=== PATIENT | female | born 1975 | race Caucasian/White ===

== ENCOUNTER → 2017-03-27 | Outpatient (CLI) | payer BC ==
--- NOTE | 2017-03-28 13:31 | MM ---
Reason for exam: screening (asymptomatic). Last mammogram was performed 1 year and 1 month ago. Physical Findings: A clinical breast exam by your physician is recommended on an annual basis and results should be correlated with mammographic findings. MG Screening Mammo w CAD Bilateral CC and MLO view(s) were taken. Prior study comparison: February 17, 2016, right breast MG work up mamm w CAD RT. February 09, 2016, bilateral MG screening mammo w CAD. The breast tissue is heterogeneously dense. This may lower the sensitivity of mammography. No significant changes when compared with prior studies. ASSESSMENT: Negative, BI-RAD 1 RECOMMENDATION: Routine screening mammogram of both breasts in 1 year.
== END | disposition home or self-care (01) ==
LOC: RADMAMWWP 07:03
PROVIDERS: ATTEND Obstetrics & Gynecology
DX: Z12.31 Encounter for screening mammogram for malignant neoplasm of breast (principal)
CPT/HCPCS: 77067

== ENCOUNTER → 2018-04-01 | Outpatient (CLI) | payer BC ==
--- NOTE | 2018-04-02 12:03 | MM ---
Reason for exam: screening (asymptomatic). Last mammogram was performed 1 year ago. Physical Findings: A clinical breast exam by your physician is recommended on an annual basis and results should be correlated with mammographic findings. MG Screening Mammo w CAD Bilateral CC and MLO view(s) were taken. Prior study comparison: March 27, 2017, bilateral MG screening mammo w CAD. February 17, 2016, right breast MG work up mamm w CAD RT. The breast tissue is heterogeneously dense. This may lower the sensitivity of mammography. No significant changes when compared with prior studies. ASSESSMENT: Benign, BI-RAD 2 RECOMMENDATION: Routine screening mammogram of both breasts in 1 year.
== END | disposition home or self-care (01) ==
LOC: RADMAMWWP 06:48
PROVIDERS: ATTEND Obstetrics & Gynecology
DX: Z12.31 Encounter for screening mammogram for malignant neoplasm of breast (principal)
CPT/HCPCS: 77067

== ENCOUNTER → 2019-04-21 | Outpatient (CLI) | payer MEDICAID ==
--- NOTE | 2019-04-21 11:31 | MM ---
Reason for exam: screening (asymptomatic). Last mammogram was performed 1 year and 1 month ago. History: Patient is postmenopausal. Physical Findings: A clinical breast exam by your physician is recommended on an annual basis and results should be correlated with mammographic findings. MG Screening Mammo w CAD Bilateral CC and MLO view(s) were taken. Prior study comparison: April 01, 2018, bilateral MG screening mammo w CAD. March 27, 2017, bilateral MG screening mammo w CAD. The breast tissue is heterogeneously dense. This may lower the sensitivity of mammography. Increasing density compatible with interval weight loss. No significant changes when compared with prior studies. ASSESSMENT: Negative, BI-RAD 1 RECOMMENDATION: Routine screening mammogram of both breasts in 1 year.
== END | disposition home or self-care (01) ==
LOC: RADMAMWWP 07:14
PROVIDERS: ATTEND Obstetrics & Gynecology
DX: Z12.31 Encounter for screening mammogram for malignant neoplasm of breast (principal)
CPT/HCPCS: 77067

== ENCOUNTER → 2021-01-09 | Outpatient (CLI) | payer MEDICAID ==
--- NOTE | 2021-01-11 09:53 | MM ---
Reason for exam: screening (asymptomatic). Last mammogram was performed 1 year and 9 months ago. History: Patient is postmenopausal. Took hormonal contraceptives for 10 years. Physical Findings: A clinical breast exam by your physician is recommended on an annual basis and results should be correlated with mammographic findings. MG Screening Mammo w CAD Bilateral CC and MLO view(s) were taken. Prior study comparison: April 21, 2019, bilateral MG screening mammo w CAD. April 01, 2018, bilateral MG screening mammo w CAD. The breast tissue is heterogeneously dense. This may lower the sensitivity of mammography. No significant changes when compared with prior studies. ASSESSMENT: Benign, BI-RAD 2 RECOMMENDATION: Routine screening mammogram of both breasts in 1 year.
== END | disposition home or self-care (01) ==
LOC: RADMAMWWP 08:50
PROVIDERS: ATTEND Obstetrics & Gynecology
DX: Z12.31 Encounter for screening mammogram for malignant neoplasm of breast (principal); Z78.0 Asymptomatic menopausal state
CPT/HCPCS: 77067

== ENCOUNTER → 2021-02-24 | Outpatient (CLI) | payer MEDICAID, OTHER | END | disposition home or self-care (01) | LOC: LABWHC1 10:02 | PROVIDERS: ATTEND Emergency Medicine | DX: Z20.822 Contact with and (suspected) exposure to COVID-19 (principal) | CPT/HCPCS: 87635 ==

== ENCOUNTER → 2022-02-07 | Outpatient (CLI) | payer MEDICAID ==
[2022-02-07 10:48] LABS: HCT 44.4 % (37.2-46.3); HGB 13.6 g/dL (12.0-15.0); MCH 27.8 pg (27.0-32.0); MCHC 30.6 g/dL (32.0-37.0); MCV 90.6 fL (80.0-97.0); Mean Platelet Volume 10.1 fL (9.5-12.2); NRBC Per 100 WBC 0 /100 WBCS (0.0-0.0); Platelet Count 253 X 10*3/uL (140-440); RDW 12.6 % (11.5-14.5); WBC 6.69 X 10*3/uL (4.50-10.00)
[2022-02-07 10:50] LABS: BUN/Creat Ratio 15.38 Ratio (12.00-20.00); Blood Urea Nitrogen 10.4 mg/dL (9.0-27.0); Calcium 8.8 mg/dL (8.7-10.3); Carbon Dioxide 26.1 mmol/L (20.0-27.5); Chloride 104 mmol/L (96-109); Chol/HDL Ratio 3.71 Ratio; Glucose 108 mg/dL (70-110); LDL Cholesterol,Calculated 107.2 mg/dL (0.0-131.0); Non-African American GFR(CKD) 104.4 (60.0-200.0); Potassium 4.8 mmol/L (3.5-5.5); Sodium 137 mmol/L (135-145); VLDL Calculation 17.04 mg/dL (5.00-40.00)
== END | disposition home or self-care (01) ==
LOC: LABWHC1 07:36
PROVIDERS: ATTEND Internal Medicine Interventional Cardiology
DX: E78.5 Hyperlipidemia, unspecified (principal); R00.2 Palpitations
CPT/HCPCS: 36415; 80048; 80061; 84443; 85027

== ENCOUNTER → 2023-04-12 | Outpatient (CLI) | payer MEDICAID ==
--- NOTE | 2023-04-12 12:23 | CA ---
Stress Echo Report Manju Rodríguez Age: 48 Gender: F : 1975 Exam Date: 04/12/2023 10:19 Exam Location: [place] Stress Ht (in): 67 Wt (lb): 218 Ordering Physician: Morales Messer MD ([id number]) Referring Physician: QUITA MESSER,, Tar Heater Operator: OKSANA CHAUDHRY Technologist Procedure CPT: Indication: R0.02 ATYPICAL CHEST PAIN ICD-9 Codes: Rhythm: Patient History: Cardiac Medications: METOPROLOL Medications in past 24 hours: Contrast: N/A Stress Results Protocol: Brian Total dose(mL): NA Exercise Duration (min:sec): 8:[address] Depression (mm): Angina Score: Barrios Score: METS: 9.7 Resting HR: 120 Resting BP: 121 / 77 Peak HR: 171 Peak BP: 160 / 50 Max Predicted HR: 172 99 % Max Predicted HR Target HR: 146 Double Product: [id number] Stress Summary: BP Response: Reason for Termination: Reached target heart rate or work-load Cardiac Symptoms: NO SYMPTOMS ECG Analysis Resting ECG: Stress ECG: Arrhythmia: Echo Analysis Resting Echo: Peak Echo Analysis: MEASUREMENTS (Male/Female) Normal Values CONCLUSIONS Patient underwent exercise stress echo with a Brian protocol treadmill stress test. Patient exercised into Stage 2 for a total of 8 minutes and 7 seconds reaching a total of 9.7 METS. Patient's maximum heart rate was 171 which represented 99% age- predicted maximum heart rate. Stress EKG portion: At baseline patient's EKG showed normal sinus rhythm, normal axis, no significant ST or T wave abnormalities. At peak exercise, EKG showed no significant change from baseline. Stress echo portion: 2-D echocardiogram was performed in the parasternal long, personal short, apical 2 and apical four-chamber views at rest, peak exercise and in recovery. At baseline, echocardiogram showed left ventricular ejection fraction 55% without wall motion abnormalities. With peak exercise, echocardiogram shows improvement in left ventricular ejection fraction, increase contractility, decrease in left ventricular end systolic dimension without wall motion abnormalities consistent with a normal response to exercise. Conclusions: 1. Normal EKG and echo response to exercise without evidence of inducible ischemia. 2. Fair exercise capacity. Dr. Sloan Samano DO (Electronically Signed) Final Date: 12 April 2023 12:22
--- NOTE | 2023-04-12 12:24 | CA ---
Transthoracic Echo Report Name: Manju Rodríguez Age: 48 Gender: F : 1975 Exam Date: 04/12/2023 09:21 Exam Location: [facility] Echo Ht (in): 67 Wt (lb): 218 Ordering Physician: Morales Grove MD ([id number]) Attending/Referring Phys: Collector Wenceslao Henriquez RD Procedure CPT: Indications: R00.2 ATYPICAL CHEST PAIN PALPITATIONS Cardiac Hx: Technical Quality: Fair Contrast 1: Total Dose (mL): Contrast 2: Total Dose (mL): MEASUREMENTS (Male / Female) Normal Values 2D ECHO LV Diastolic Diameter PLAX 4.4 cm 4.2 - 5.9 / 3.9 - 5.3 cm LV Systolic Diameter PLAX 3.1 cm IVS Diastolic Thickness 0.9 cm 0.6 - 1.0 / 0.6 - 0.9 cm LVPW Diastolic Thickness 1.0 cm 0.6 - 1.0 / 0.6 - 0.9 cm LV Relative Wall Thickness 0.4 RV Internal Dim ED PLAX 2.8 cm LVOT Diameter 2.0 cm Aortic Root Diameter 2.9 cm LA Systolic Diameter LX 2.7 cm 3.0 - 4.0 / 2.7 - 3.8 cm LV Diastolic Volume MOD BP 48.3 cm??? 67 - 155 / 56 - 104 cm??? LV Systolic Volume MOD BP 24.7 cm??? 22 - 58 / 19 - 49 cm??? LV Ejection Fraction MOD BP 48.9 % >= 55 % LV Cardiac Index MOD BP 1020.3 cm???/min???m??? LV Diastolic Volume MOD 4C 63.3 cm??? LV Systolic Volume MOD 4C 33.7 cm??? LV Ejection Fraction MOD 4C 46.7 % LV Cardiac Index MOD 4C 1278.3 cm???/min???m??? LV Diastolic Length 4C 7.1 cm LV Systolic Length 4C 7.0 cm LV Diastolic Volume MOD 2C 35.3 cm??? LV Systolic Volume MOD 2C 16.1 cm??? LV Ejection Fraction MOD 2C 54.3 % LV Cardiac Index MOD 2C 826.4 cm???/min???m??? LV Diastolic Length 2C 6.8 cm LV Systolic Length 2C 6.1 cm LA Volume 31.0 cm??? 18 - 58 / 22 - 52 cm??? LA Volume Index 14.1 cm???/m??? 16 - 28 cm???/m??? DOPPLER AV Peak Velocity 152.0 cm/s AV Peak Gradient 9.2 mmHg AV Mean Velocity 96.2 cm/s AV Mean Gradient 4.4 mmHg AV Velocity Time Integral 29.5 cm LVOT Peak Velocity 104.8 cm/s LVOT Peak Gradient 4.4 mmHg LVOT Velocity Time Integral 22.5 cm LVOT Stroke Volume 73.9 cm??? LVOT Stroke Volume Index 35.2 ml/m??? LVOT Cardiac Index 3193.1 cm???/min???m??? AV Area Cont Eq vti 2.5 cm??? AV Area Cont Eq pk 2.3 cm??? MV Peak Velocity 106.2 cm/s MV Peak Gradient 4.5 mmHg MV Mean Velocity 54.1 cm/s MV Mean Gradient 1.5 mmHg MV Velocity Time Integral 22.6 cm Mitral E Point Velocity 140.3 cm/s Mitral A Point Velocity 49.4 cm/s Mitral E to A Ratio 2.8 MV Deceleration Time 77.6 ms MV E' Velocity 8.4 cm/s Mitral E to MV E' Ratio 16.7 TR Peak Velocity 237.6 cm/s TR Peak Gradient 22.6 mmHg Right Ventricular Systolic Press 27.6 mmHg PV Peak Velocity 120.1 cm/s PV Peak Gradient 5.8 mmHg FINDINGS Left Ventricle Normal LV size and wall thickness. Left ventricular ejection fraction is estimated at 50-55 %. Right Ventricle Normal right ventricular size. Right Atrium Normal right atrial size. Left Atrium Normal left atrial size. Mitral Valve Structurally normal mitral valve. No mitral stenosis. No mitral regurgitation. Aortic Valve Trileaflet aortic valve. No aortic valve stenosis or regurgitation. Tricuspid Valve Structurally normal tricuspid valve. Trace to mild TR. Pulmonic Valve Pulmonic valve not well visualized. No pulmonic regurgitation. Pericardium Normal pericardium. Aorta Normal size aortic root. CONCLUSIONS Left ventricular ejection fraction 50-55% No mitral regurgitation Trace to mild tricuspid regurgitation RVSP 27 Previewed by: Dr. Sloan Samano DO (Electronically Signed) Final Date: 12 April 2023 12:23
== END | disposition home or self-care (01) ==
LOC: RADECHMAIN 08:15
PROVIDERS: ATTEND Internal Medicine Interventional Cardiology
DX: I36.1 Nonrheumatic tricuspid (valve) insufficiency (principal); R00.2 Palpitations; R07.89 Other chest pain
CPT/HCPCS: 93306; 93351

== ENCOUNTER 2023-07-13 13:24 | Emergency (ER) | payer MEDICAID ==
--- NOTE | 2023-07-13 14:09 | ED ---
Lower Extremity Injury HPI - General Chief Complaint: Extremity Injury, Lower Stated Complaint: L ankle injury Time Seen by Provider: 07/13/23 13:53 Source: patient, RN notes reviewed Mode of arrival: ambulatory Limitations: no limitations - History of Present Illness Initial Comments: This is a 48-year-old female who presents to the emergency department for a left ankle injury. States that 2 days ago [place], when she stepped in a hole and rolled her left ankle. She states that she felt something move on the inside of her ankle. She has since had increasing pain to the inside and outside of the ankle. She is taking ibuprofen to help with swelling, however it has not been particularly effective for the pain. She is still able to ambulate, however if surfaces are not flat, it becomes very difficult. Denies hitting her head or sustaining any other injuries. MD Complaint: ankle injury - Related Data Home Medications Medication Instructions Recorded Confirmed Gildess 1 tab PO DAILY 10/29/17 11/01/17 Previous Rx's Medication Instructions Recorded Ibuprofen [Motrin] 600 mg PO Q6HR PRN #40 tab 11/01/17 Allergies Allergy/AdvReac Type Severity Reaction Status Date / Time No Known Allergies Allergy Verified 07/13/23 13:42 Review of Systems ROS Statement: Those systems with pertinent positive or pertinent negative responses have been documented in the HPI. ROS Other: All systems not noted in ROS Statement are negative. Past Medical History Past Medical History: No Reported History Additional Past Medical History / Comment(s): Renal calculi. History of transient hypertension. History of Any Multi-Drug Resistant Organisms: None Reported Additional Past Surgical History / Comment(s): D&C, laparoscopic surgery to remove cyst, removal of lump on back Past Anesthesia/Blood Transfusion Reactions: No Reported Reaction Past Psychological History: No Psychological Hx Reported Smoking Status: Never smoker Past Alcohol Use History: Occasional Past Drug Use History: None Reported - Past Family History Mother Family Medical History: No Reported History General Exam Limitations: no limitations General appearance: alert, in no apparent distress Head exam: Present: atraumatic, normocephalic, normal inspection Respiratory exam: Present: normal lung sounds bilaterally. Absent: respiratory distress, wheezes, rales, rhonchi, stridor Cardiovascular Exam: Present: regular rate, normal rhythm, normal heart sounds. Absent: systolic murmur, diastolic murmur, rubs, gallop, clicks Extremities exam: Present: other (Tenderness to palpation and mild swelling over the left medial and lateral malleolus. Full range of motion. 2+ DP and PT pulses.) Neurological exam: Present: alert, oriented X3, CN II-XII intact Psychiatric exam: Present: normal affect, normal mood Skin exam: Present: warm, dry, intact, normal color. Absent: rash Course Vital Signs 07/13/23 07/13/23 07/13/23 13:39 13:49 15:01 Temperature 98.6 F 98.4 F 98.3 F Pulse Rate 85 90 82 Respiratory 18 17 18 Rate Blood Pressure 144/90 149/99 120/87 O2 Sat by Pulse 98 97 95 Oximetry Medical Decision Making - Medical Decision Making This is a 48 year old female who presents to the emergency department for a left ankle injury. Was pt. sent in by a medical professional or institution? @ -No Did you speak to anyone other than the patient for history? @ -No Did you review nursing and triage notes? @ -Yes, and I agree, it is accurate with regards to the patient's symptoms. Were old charts reviewed? @ -No Differential Diagnosis? @ -Differential Musculoskeletal: Muscular strain, contusion, ligament sprain, fracture, arthritis, septic arthritis, bursitis, cellulitis, muscle spasm, nerve compression, DVT, arterial occlusion, herpes zoster, electrolyte abnormality, tumor.... This is not meant to be in all inclusive list EKG interpreted by me (3pts min.)? @ -Not obtained X-rays interpreted by me (1pt min.)? @ -X-ray of the left foot and ankle obtained. My interpretation identifies no acute fractures. CT interpreted by me (1pt min.)? @ -Not obtained U/S interpreted by me (1pt. min.)? @ -Not obtained What testing was considered but not performed? (CT, X-rays, U/S, labs)? Why? @ -None What meds were considered but not given? Why? @ -None Did you discuss the management of the patient with other professionals? @ -No Did you reconcile home meds? @ -No Was smoking cessation discussed for >3mins.? @ -No Was critical care preformed (if so, how long)? @ -No Were there social determinants of health that impacted care today? How? (Homelessness, low income, unemployed, alcoholism, drug addiction, transportation, low edu. Level, literacy, decrease access to med. care, [facility], re hab)? @ -No Was there de-escalation of care discussed even if they declined? (Discuss DNR or withdrawal of care, Hospice)? @ -No What co-morbidities impacted this encounter? (DM, HTN, Smoking, COPD, CAD, Cancer, CVA, Hep., AIDS, mental health diagnosis, sleep apnea, morbid obesity)? @ -None Was patient admitted / discharged? @ -Discharged. X-ray of the left foot and ankle obtained demonstrating subcutaneous swelling around the ankle likely secondary to underlying soft tissue injury. No acute fractures were identified. Patient declined the need for any pain medication in the emergency department. She was given a Velcro stirrup splint to use as needed. Advised alternating with ibuprofen and Tylenol as needed for pain relief and follow-up with her primary care provider. Undiagnosed new problem with uncertain prognosis? @ -None Drug Therapy requiring intensive monitoring for toxicity (Heparin, Nitro, Insulin, Cardizem)? @ -None Were any procedures done? @ -None Diagnosis/symptom? @ -Left ankle sprain Acute, or Chronic, or Acute on Chronic? @ -Acute Uncomplicated (without systemic symptoms) or Complicated (systemic symptoms)? @ -Uncomplicated Side effects of treatment? @ -None Exacerbation, Progression, or Severe Exacerbation] @ -Not applicable Poses a threat to life or bodily function? @ -No Return precautions reviewed in depth, the patient is instructed to return to the emergency department with any new, worsening, or concerning symptoms. Patient v erbalized understanding. This case was discussed in detail with the attending ED physician, Dr. Olmstead. Presentation, findings, and treatment plan discussed in detail as well. - Radiology Data Radiology results: report reviewed, image reviewed Disposition Clinical Impression: Left ankle sprain Disposition: HOME SELF-CARE Instructions (If sedation given, give patient instructions): Ankle Sprain (ED) Additional Instructions: Return to the emergency department with any new, worsening, or concerning symptoms. Alternate with ibuprofen and Tylenol as needed for pain relief. Use the Velcro splint as needed. Follow up with your primary care provider in 1-2 days. Is patient prescribed a controlled substance at d/c from ED?: No Referrals: Sima Delacruz III, MD [Primary Care Provider] - 1-2 days Time of Disposition: 14:32
--- NOTE | 2023-07-13 14:21 | XR ---
EXAMINATION TYPE: XR ankle complete LT, XR foot complete LT DATE OF EXAM: 07/13/2023 2:15 PM CLINICAL INDICATION:Female, 48 years old with history of Fall; [facility] COMPARISON: None TECHNIQUE: XR ankle complete LT, XR foot complete LT; ankle is imaged in frontal, lateral and obliqu e projections. FINDINGS: There is no evidence of acute osseous pathology. No evidence of subluxation or dislocation. Kager's fat pad is intact. Mild soft tissue swelling around the ankle. No radiopaque foreign bodies are ident ified. Multifocal degeneration changes throughout the joints of the foot with osteophyte formation an d joint space narrowing. Calcaneal plantar spurring is present. IMPRESSION: 1. No evidence of acute fracture. 2. Subcutaneous swelling around the ankle likely secondary to underlying soft tissue injury.
[2023-07-13 15:16] VITALS: BP 120/87; PULSE 82; RESP 18; TEMP 98.3
== END 2023-07-13 15:02 | disposition home or self-care (01) ==
LOC: EC 13:24
DX: S93.402A Sprain of unspecified ligament of left ankle, initial encounter (principal); X58.XXXA Exposure to other specified factors, initial encounter
CPT/HCPCS: 99283